=== PATIENT | female | born 1965 | race Caucasian/White ===

== ENCOUNTER 2017-11-08 15:24 | Emergency (ER) | payer MEDICAID ==
--- NOTE | 2017-11-08 15:55 | ED PDOC ---
Arrival/HPI - General Chief Complaint: Upper Extremity Problem/Injury Time Seen by Provider: 11/08/17 15:40 Historian: Patient, Family - History of Present Illness Narrative History of Present Illness (Text): 11/08/17 15:51 you were treated in the ED today for having an accidental slip/fall on the stairs with injury to the left shoulder but otherwise without any head injury/ neck pain/loss of consciousness/nausea/vomiting/headache/dizziness/difficulty breathing/chest pain/abdomen pain/numbness/tingling/loss of limb function/pain with urination. Time/Duration: 24 hours Symptom Onset: Gradual Symptom Course: Unchanged Quality: Aching Severity Level: 1 Activities at Onset: Rest Context: Sitting Past Medical History - Provider Review Nursing Documentation Reviewed: Yes - Travel History Have you recently traveled outside [place] w/in the past 3 mons?: No - Infectious Disease Hx of Infectious Diseases: None - Tetanus Immunization Tetanus Immunization: Unknown - Reproductive Menopause: Yes - Cardiac Hx Cardiac Disorders: Yes Hx Hypertension: Yes - Pulmonary Hx Respiratory Disorders: No - Neurological Hx Neurological Disorder: No - HEENT Hx HEENT Disorder: No - Renal Hx Renal Disorder: No - Endocrine/Metabolic Hx Endocrine Disorders: Yes Hx Hypothyroidism: Yes - Hematological/Oncological Hx Blood Disorders: No - Integumentary Hx Dermatological Disorder: No - Musculoskeletal/Rheumatological Hx Musculoskeletal Disorders: No - Gastrointestinal Hx Gastrointestinal Disorders: No - Genitourinary/Gynecological Hx Genitourinary Disorders: No - Psychiatric Hx Psychophysiologic Disorder: No Hx Substance Use: No - Surgical History Hx Section: Yes - Suicidal Assessment Feels Threatened In Home Enviroment: No Family/Social History - Physician Review Nursing Documentation Reviewed: Yes Family/Social History: No Known Family HX Smoking Status: Never Smoked Hx Alcohol Use: No Hx Substance Use: No Hx Substance Use Treatment: No Allergies/Home Meds Allergies/Adverse Reactions: Allergies No Known Allergies Allergy (Verified 11/08/17 15:26) Home Medications: Home Meds Medication Instructions Recorded Confirmed Levothyroxine Sodium [Levothroid] 125 mcg PO DAILY 08/21/14 11/08/17 amLODIPine [Norvasc] 5 mg PO DAILY 11/18/14 11/08/17 Cholecalciferol (Vitamin D3) 1 tab PO DAILY 11/08/17 11/08/17 [Vitamin D3] Review of Systems - Review of Systems Constitutional: Normal Eyes: Normal ENT: Normal Respiratory: Normal Cardiovascular: Normal Gastrointestinal: Normal Genitourinary Female: Normal Musculoskeletal: Arthralgias Skin: Normal Neurological: Normal Endocrine: Normal Hemo/Lymphatic: Normal Psychiatric: Normal Physical Exam Vital Signs Reviewed: Yes Vital Signs Temp Pulse Resp BP Pulse Ox 11/08/17 15:28 98.2 F 64 16 131/80 98 Temperature: Afebrile Blood Pressure: Hypertensive Pulse: Regular Respiratory Rate: Normal Appearance: Positive for: Well-Appearing, Non-Toxic, Comfortable Pain Distress: None Mental Status: Positive for: Alert and Oriented X 3 - Systems Exam Head: Present: Atraumatic, Normocephalic Pupils: Present: PERRL Extroacular Muscles: Present: EOMI Conjunctiva: Present: Normal Ears: Present: Normal Mouth: Present: Moist Mucous Membranes Pharnyx: Present: Normal Nose (External): Present: Atraumatic Nose (Internal): Present: Normal Inspection Neck: Present: Normal Range of Motion Respiratory/Chest: Present: Clear to Auscultation, Good Air Exchange Cardiovascular: Present: Regular Rate and Rhythm Abdomen: No: Tenderness, Distention, Normal Bowel Sounds, Peritoneal Signs, Rebound, Guarding, McBurney's Point Tender, Rovsing's Sign Present, Hernias, Feeding Tubes, Ostomy Tubes, Mass/Organomegaly, Scars, Other Back: Present: Normal Inspection Upper Extremity: Present: Other (no spinal tenderness, mild left shoulder discomfort but otherwise no other bony tenderness and with good warm/pink/ sensation/radial pulse in extremity, incidentally noted right accessary thumb without any pain/redness and no other noted bony tenderness. otherwise b/l ue/l from/warm/sensaion/cap refill/pink.) Lower Extremity: Present: Normal Inspection Neurological: Present: GCS=15, CN II-XII Intact, Speech Normal, Motor Func Grossly Intact Skin: Present: Warm, Normal Color Psychiatric: Present: Alert, Oriented x 3, Normal Insight, Normal Concentration Medical Decision Making ED Course and Treatment: you were treated in the ED today for having an accidental slip/fall on the stairs with injury to the left shoulder but otherwise without any head injury/ neck pain/loss of consciousness/nausea/vomiting/headache/dizziness/difficulty breathing/chest pain/abdomen pain/numbness/tingling/loss of limb function/pain with urination. You were otherwise breathing easily, smiling and talking with your son, good strength/sensation, walking easily, clear lungs, no abdomen tenderness, no spinal tenderness, mild left shoulder discomfort but otherwise no other bony tenderness and with good warm/pink/sensation/radial pulse in extremity, no fever temp 98.2, stable heart rate 64, stable breathing rate 16, excellent oxygen level 98% room air, elevated blood pressure 131/80 which we recommend repeat in 2-3 days primary care office to determine further treatment , radiology left shoulder xray normal findings, motrin, observation done in the ED with improvement, counselled to use sling, rest left upper extremity and thus discharged home with son. 1. Recommend heating pad. 2. Recommend tylenol as directed for pain. 3. Recommend follow-up primary care 1-2 days to review symptoms, orthopedics clinic referral. 4. If any worsening pain, fever, chills, nausea, vomiting, difficulty breathing, numbness, loss of limb function, pain with urination or any medical condition then return to the ED. 11/08/17 15:55 11/08/17 16:37 11/08/17 17:06 Reassessment Condition: Re-examined, Improved - RAD Interpretation Radiology Orders: 11/08/17 15:49 SHOULDER LEFT [RAD] Stat Field Assistant: Radiologist (left shoulder xray normal findings) - Medication Orders Current Medication Orders: Discontinued Medications Ibuprofen (Motrin Tab) 800 mg PO STAT STA Stop: 11/08/17 15:58 Last Admin: 11/08/17 16:26 Dose: 800 mg Disposition/Present on Arrival - Present on Arrival Any Indicators Present on Arrival: No History of DVT/PE: No History of Uncontrolled Diabetes: No Urinary Catheter: No History of Decub. Ulcer: No History Surgical Site Infection Following: None - Disposition Have Diagnosis and Disposition been Completed?: Yes Diagnosis: Shoulder injury Disposition: HOME/ ROUTINE Disposition Time: 17:08 Patient Plan: Discharge Condition: IMPROVED Additional Instructions: you were treated in the ED today for having an accidental slip/fall on the stairs with injury to the left shoulder but otherwise without any head injury/ neck pain/loss of consciousness/nausea/vomiting/headache/dizziness/difficulty breathing/chest pain/abdomen pain/numbness/tingling/loss of limb function/pain with urination. You were otherwise breathing easily, smiling and talking with your son, good strength/sensation, walking easily, clear lungs, no abdomen tenderness, no spinal tenderness, mild left shoulder discomfort but otherwise no other bony tenderness and with good warm/pink/sensation/radial pulse in extremity, no fever temp 98.2, stable heart rate 64, stable breathing rate 16, excellent oxygen level 98% room air, elevated blood pressure 131/80 which we recommend repeat in 2-3 days primary care office to determine further treatment , radiology left shoulder xray normal findings, motrin, observation done in the ED with improvement, counselled to use sling, rest left upper extremity and thus discharged home with son. 1. Recommend heating pad. 2. Recommend tylenol as directed for pain. 3. Recommend follow-up primary care 1-2 days to review symptoms, orthopedics clinic referral. 4. If any worsening pain, fever, chills, nausea, vomiting, difficulty breathing, numbness, loss of limb function, pain with urination or any medical condition then return to the ED. Referrals: Nani Perez MD [Primary Care Provider] - Follow up with primary Forms: [employer] (E[place]ian)
--- NOTE | 2017-11-08 16:37 | RAD ---
PROCEDURE: Radiographs of the Left Shoulder HISTORY: left shoulder pain COMPARISON: No prior. FINDINGS: BONES: Normal. No fracture. JOINTS: Normal. Glenohumeral and acromioclavicular joints preserved. No osteoarthritis. SOFT TISSUES: Normal. OTHER FINDINGS: None. IMPRESSION: Normal radiographs of the left shoulder.
[2017-11-09 11:09] VITALS: BP 129/78; PULSE 62; RESP 17; TEMP 98.2; O2SAT 98
== END 2017-11-08 17:15 | disposition home or self-care (01) ==
LOC: ED 15:24
DX: S49.92XA Unspecified injury of left shoulder and upper arm, initial encounter (principal); W10.9XXA Fall (on) (from) unspecified stairs and steps, initial encounter; I10 Essential (primary) hypertension; E03.9 Hypothyroidism, unspecified